=== PATIENT | male | born 1995 | race Caucasian/White ===

== ENCOUNTER 2018-02-22 20:50 | Emergency (ER) | payer OTHER ==
[2018-02-22] MEDS ORDERED: MOTRIN 600 MG PO STA (21:22)
[2018-02-22] MEDS ORDERED: Sodium Chloride 0.9% 1000 ML 1,000 ML IV STA (21:22)
[2018-02-22] MEDS ORDERED: Zofran 4 MG/2 ML VIAL IV STA (21:22)
[2018-02-22] MEDS ORDERED: Sodium Chloride 0.9% 1000 ML 1,000 ML ONE (21:37)
[2018-02-22] MEDS ORDERED: MOTRIN 600 MG ONE (21:37)
[2018-02-22] MEDS ORDERED: Zofran 4 MG/2 ML VIAL ONE (21:37)
[2018-02-22 21:52] LABS: BASOPHIL % 0.1 % (0.0-0.4); Basophil (Absolute #) 0.01 (0-0.4); Eosinophil % 0.1 % (0.00-5.0); Eosinophil (Absolute #) 0.01 (0-0.5); Granulocyte Absolute (ANC) 6.56 (1.4-6.9); Hematocrit 48.4 % (42-50); Hemoglobin 16.6 gm/dl (12.5-18.0); Lymphocyte (Absolute #) 0.41 (1.0-4.6); Lymphocytes % 5.6 % (24.0-44.0); Mean Cell Volume 87.7 fl (78-100); Mean Corpuscular Hemoglobin 30.1 pg (26-32); Mean Corpuscular Hgb Concent. 34.3 g/dl (32-36); Mean Platelet Volume 10.1 fl (6-9.5); Monocyte (Absolute #) 0.31 (0.0-1.3); Monocytes % 4.2 % (0.0-12.0); Platelet Count 172 K/mm3 (150-450); Red Blood Count 5.52 M/mm3 (4.1-5.6); White Blood Count 7.3 K/mm3 (4.0-10.5)
--- NOTE | 2018-02-22 21:52 | ERPHSYRPT ---
- History of Present Illness Time Seen by Provider: 02/22/18 21:35 Source: patient, family Exam Limitations: no limitations Patient Subjective Stated Complaint: Fever Triage Nursing Assessment: Patient ambulated into ED and transferred self to bed. Patient A+O X 3. Patient complains of being cold. Patient's temp currently 100.5. Patient hasn't checked temp at home. Patient also states it mobley when he urinates 12/22. Patient was seen by his family doctor today for possible kidney stones and was given a prescription for Cipro and Tamsulosin. Patient's skin flushed. Patient also states he has a slight headache. Physician History: 22 y/o white male presents with shaking fevers. pt seen by pcp today and given rx for cipro and tamiflu. pt took one dose of each medication today. pt having flu like sx including vomiting that began yesterday, muscle aches today, painful urination today, and fever today. pcp did not swab for flu Timing/Duration: yesterday (vomiting) Fever Severity: moderate Fever Therapy [employer]: none Associated Symptoms: headache, muscle aches, nausea/vomiting, weakness Allergies/Adverse Reactions: acetaminophen [From NyQuil] Allergy (Verified 02/22/18 21:13) bee venom protein (honey bee) Allergy (Verified 02/22/18 21:13) dextromethorphan [From NyQuil] Allergy (Verified 02/22/18 21:13) doxylamine [From NyQuil] Allergy (Verified 02/22/18 21:13) pseudoephedrine [From NyQuil] Allergy (Verified 02/22/18 21:13) Hx Tetanus, Diphtheria Vaccination/Date Given: No Hx Influenza Vaccination/Date Given: No Hx Pneumococcal Vaccination/Date Given: No Immunizations Up to Date: Yes - Review of Systems Constitutional: Fever, Weakness Eyes: No Symptoms Ears, Nose, & Throat: No Symptoms, No Ear Pain, No Nose Congestion Respiratory: No Symptoms, No Cough, No Dyspnea, No Stridor, No Wheezing Cardiac: No Symptoms, No Chest Pain, No Edema, No Palpitations, No Syncope Abdominal/Gastrointestinal: Nausea, Vomiting, No Abdominal Pain, No Diarrhea Genitourinary Symptoms: No Dysuria, No Frequency, No Hematuria Musculoskeletal: No Symptoms Skin: No Symptoms Neurological: No Symptoms Psychological: No Symptoms Endocrine: No Symptoms Hematologic/Lymphatic: No Symptoms Immunological/Allergic: No Symptoms All Other Systems: Reviewed and Negative - Past Medical History Pertinent Past Medical History: No Neurological History: No Pertinent History ENT History: No Pertinent History Cardiac History: No Pertinent History Respiratory History: No Pertinent History Endocrine Medical History: No Pertinent History Musculoskeletal History: No Pertinent History GI Medical History: No Pertinent History History: No Pertinent History Psycho-Social History: No Pertinent History Male Reproductive Disorders: No Pertinent History - Past Surgical History Past Surgical History: Yes Neuro Surgical History: No Pertinent History Cardiac: No Pertinent History Respiratory: No Pertinent History Gastrointestinal: No Pertinent History Genitourinary: No Pertinent History Musculoskeletal: Orthopedic Surgery Male Surgical History: No Pertinent History Other Surgical History: Rotator cuff surgery 2012 - Social History Smoking Status: Never smoker Exposure to second hand smoke: No Drug Use: none Patient Lives Alone: No - Nursing Vital Signs Nursing Vital Signs: Initial Vital Signs Temperature 100.5 F 02/22/18 21:05 Pulse Rate 124 H 02/22/18 21:05 Respiratory Rate 18 02/22/18 21:05 Blood Pressure 138/93 02/22/18 21:05 O2 Sat by Pulse Oximetry 98 02/22/18 21:05 Pain Scale Pain Intensity 7 - Physical Exam General Appearance: mild distress, alert, anxiety Eye Exam: PERRL/EOMI, eyes nml inspection ENT Exam: normal ENT inspection Neck Exam: normal inspection, non-tender, supple, full range of motion Respiratory Exam: normal breath sounds, chest non-tender, lungs clear, no respiratory distress, No no accessory muscle use, No accessory muscle use, No rhonchi, No stridor, No wheezing Cardiovascular/Chest Exam: normal heart sounds, regular rate/rhythm, normal peripheral pulses Gastrointestinal/Abdominal Exam: soft, non tender, no distention, no mass, no guarding, no ecchymosis, no organomegaly, no pulsatile mass, normal bowel sounds , No guarding, No rebound, No tenderness Rectal Exam: not done Extremity Exam: non-tender, normal range of motion, normal inspection Neurologic Exam: alert, oriented x 3, cooperative, 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 Skin Exam: normal color, warm, dry Lymphatic: No adenopathy SpO2 Interpretation: normal SpO2: 98 Oxygen Delivery: Room Air - Course Nursing assessment & vital signs reviewed: Yes Ordered Tests: Active Orders 24 hr Category Date Time Status Clean Catch Urine Specimen STAT Care 02/22/18 21:22 Active IV Insertion STAT Care 02/22/18 21:22 Active CHEST 1 VIEW (PORTABLE) Stat Exams 02/22/18 21:23 Taken BLOOD CULTURE Stat Lab 02/22/18 21:45 Received CBC W DIFF Stat Lab 02/22/18 21:30 Completed CMP Stat Lab 02/22/18 21:30 Completed CULTURE,URINE Stat Lab 02/22/18 21:33 Received Lactic Acid Stat Lab 02/22/18 21:52 Results [place] Screen Stat Lab 02/22/18 22:00 Completed UA W/RFX UR CULTURE Stat Lab 02/22/18 21:33 Completed Medication Summary Generic Name Dose Route Start Last Admin Trade Name Freq PRN Reason Stop Dose Admin Ceftriaxone Sodium/Dextrose 1 g in 50 mls @ 100 mls/hr 02/22/18 22:53 Rocephin 1 Gm-D5w 50 Ml Bag IV 02/22/18 23:22 STAT STA Discontinued Medications Generic Name Dose Route Start Last Admin Trade Name Freq PRN Reason Stop Dose Admin Sodium Chloride 1,000 mls @ 999 mls/hr 02/22/18 21:22 02/22/18 21:41 Sodium Chloride 0.9% 1000 Ml IV 02/22/18 22:22 999 mls/hr .Q1H1M STA Administration Sodium Chloride Confirm 02/22/18 21:37 Sodium Chloride 0.9% 1000 Ml Administered 02/22/18 21:38 Dose 1,000 mls @ ud .ROUTE .STK-MED ONE Ceftriaxone Sodium/Dextrose Confirm 02/22/18 23:07 Rocephin 1 Gm-D5w 50 Ml Bag Administered 02/22/18 23:08 Dose 1 g in 50 mls @ ud IV .STK-MED ONE Ibuprofen 600 mg 02/22/18 21:22 02/22/18 21:40 Motrin 600 Mg PO 02/22/18 21:23 600 mg STAT STA Administration Ibuprofen Confirm 02/22/18 21:37 Motrin 600 Mg Administered 02/22/18 21:38 Dose 600 mg .ROUTE .STK-MED ONE Ondansetron HCl 4 mg 02/22/18 21:22 02/22/18 21:42 Zofran 4 Mg/2 Ml Vial IV 02/22/18 21:23 4 mg STAT STA Administration Ondansetron HCl Confirm 02/22/18 21:37 Zofran 4 Mg/2 Ml Vial Administered 02/22/18 21:38 Dose 4 mg .ROUTE .STK-MED ONE Lab/Rad Data: Laboratory Result Diagrams 02/22/18 21:30 02/22/18 21:30 Laboratory Results 02/22/18 02/22/18 02/22/18 Range/Units 22:00 21:52 21:33 WBC (4.0-10.5) K/mm3 RBC (4.1-5.6) M/mm3 Hgb (12.5-18.0) gm/dl Hct (42-50) % MCV (78-100) fl MCH (26-32) pg MCHC (32-36) g/dl RDW (11.5-14.0) % Plt Count (150-450) K/mm3 MPV (6-9.5) fl Gran % (36.0-66.0) % Eos # (Auto) (0-0.5) Absolute Lymphs (auto) (1.0-4.6) Absolute Monos (auto) (0.0-1.3) Lymphocytes % (24.0-44.0) % Monocytes % (0.0-12.0) % Eosinophils % (0.00-5.0) % Basophils % (0.0-0.4) % Absolute Granulocytes (1.4-6.9) Basophils # (0-0.4) Sodium (137-145) mmol/L Potassium (3.5-5.1) mmol/L Chloride (98-107) mmol/L Carbon Dioxide (22-30) mmol/L Anion Gap (5-15) MEQ/L BUN (9-20) mg/dL Creatinine (0.66-1.25) mg/dL Estimated GFR ML/MIN Glucose (74-106) mg/dL Lactic Acid 2.3 H (0.4-2.0) Calcium (8.4-10.2) mg/dL Total Bilirubin (0.2-1.3) mg/dL AST (17-59) U/L ALT (0-50) U/L Alkaline Phosphatase (38-126) U/L Serum Total Protein (6.3-8.2) g/dL Albumin (3.5-5.0) g/dL Urine Color YELLOW (YELLOW) Urine Appearance SLIGHTLY CLOUDY (CLEAR) Urine pH 6.0 (5-6) Ur Specific [place] 1.021 (1.005-1.025) Urine Protein NEGATIVE (Negative) Urine Ketones NEGATIVE (NEGATIVE) Urine Blood SMALL (0-5) Mike/ul Urine Nitrite NEGATIVE (NEGATIVE) Urine Bilirubin NEGATIVE (NEGATIVE) Urine Urobilinogen NEGATIVE (0-1) mg/dL Ur Leukocyte Esterase TRACE (NEGATIVE) Urine WBC (Auto) 16-25 (0-5) /HPF Urine RBC (Auto) 11-15 (0-2) /HPF U Epithel Cells (Auto) NONE (FEW) /HPF Urine Bacteria (Auto) FEW (NEGATIVE) /HPF Urine Mucus (Auto) SLIGHT (NEGATIVE) /HPF Urine Culture Reflexed YES (NO) Urine Glucose NEGATIVE (NEGATIVE) mg/dL Monoscreen NEGATIVE (Negative) Influenza Type A Ag (NEGATIVE) Influenza Type B Ag (NEGATIVE) RSV (PCR) (Negative) Group A Strep Antibody (NEGATIVE) 02/22/18 02/22/18 02/22/18 Range/Units 21:30 21:30 21:30 WBC 7.3 (4.0-10.5) K/mm3 RBC 5.52 (4.1-5.6) M/mm3 Hgb 16.6 (12.5-18.0) gm/dl Hct 48.4 (42-50) % MCV 87.7 (78-100) fl MCH 30.1 (26-32) pg MCHC 34.3 (32-36) g/dl RDW 12.0 (11.5-14.0) % Plt Count 172 (150-450) K/mm3 MPV 10.1 H (6-9.5) fl Gran % 90.0 H (36.0-66.0) % Eos # (Auto) 0.01 (0-0.5) Absolute Lymphs (auto) 0.41 L (1.0-4.6) Absolute Monos (auto) 0.31 (0.0-1.3) Lymphocytes % 5.6 L (24.0-44.0) % Monocytes % 4.2 (0.0-12.0) % Eosinophils % 0.1 (0.00-5.0) % Basophils % 0.1 (0.0-0.4) % Absolute Granulocytes 6.56 (1.4-6.9) Basophils # 0.01 (0-0.4) Sodium 140 (137-145) mmol/L Potassium 3.9 (3.5-5.1) mmol/L Chloride 101 (98-107) mmol/L Carbon Dioxide 25 (22-30) mmol/L Anion Gap 17.5 H (5-15) MEQ/L BUN 12 (9-20) mg/dL Creatinine 1.05 (0.66-1.25) mg/dL Estimated GFR > 60.0 ML/MIN Glucose 112 H (74-106) mg/dL Lactic Acid (0.4-2.0) Calcium 9.8 (8.4-10.2) mg/dL Total Bilirubin 1.00 (0.2-1.3) mg/dL AST 40 (17-59) U/L ALT 51 H (0-50) U/L Alkaline Phosphatase 102 (38-126) U/L Serum Total Protein 9.3 H (6.3-8.2) g/dL Albumin 5.4 H (3.5-5.0) g/dL Urine Color (YELLOW) Urine Appearance (CLEAR) Urine pH (5-6) Ur Specific [place] (1.005-1.025) Urine Protein (Negative) Urine Ketones (NEGATIVE) Urine Blood (0-5) Mike/ul Urine Nitrite (NEGATIVE) Urine Bilirubin (NEGATIVE) Urine Urobilinogen (0-1) mg/dL Ur Leukocyte Esterase (NEGATIVE) Urine WBC (Auto) (0-5) /HPF Urine RBC (Auto) (0-2) /HPF U Epithel Cells (Auto) (FEW) /HPF Urine Bacteria (Auto) (NEGATIVE) /HPF Urine Mucus (Auto) (NEGATIVE) /HPF Urine Culture Reflexed (NO) Urine Glucose (NEGATIVE) mg/dL Monoscreen (Negative) Influenza Type A Ag NEGATIVE (NEGATIVE) Influenza Type B Ag NEGATIVE (NEGATIVE) RSV (PCR) NEGATIVE (Negative) Group A Strep Antibody NEGATIVE (NEGATIVE) - Progress Progress: improved, re-examined Progress Note: 02/22/18 22:51 cxr- no acute process. 02/22/18 23:16 pt clinically doing much better. Counseled pt/family regarding: lab results, diagnosis, need for follow-up, rad results - Departure Time of Disposition: 23:17 Departure Disposition: Home Clinical Impression: Fever, UTI (urinary tract infection) Condition: Stable Critical Care Time: No Referrals: RUSSEL DIAL Jr., MD [Primary Care Provider] - Additional Instructions: drink plenty of fluids. ibuprofen for fever. take cipro as prescribed. hold tamiflu. follow up with primary doctor for further management
[2018-02-22 21:55] LABS: Lactic Acid 2.3 (0.4-2.0)
[2018-02-22 22:15] LABS: ALBUMIN 5.4 g/dL (3.5-5.0); ALKALINE PHOSPHATASE 102 U/L (38-126); ANION GAP 17.5 MEQ/L (5-15); BLOOD UREA NITROGEN 12 mg/dL (9-20); CHLORIDE 101 mmol/L (98-107); Calcium 9.8 mg/dL (8.4-10.2); Carbon Dioxide 25 mmol/L (22-30); Creatinine 1 1.05 mg/dL (0.66-1.25); Glucose 112 mg/dL (74-106); Potassium 3.9 mmol/L (3.5-5.1); SGOT/AST 40 U/L (17-59); SGPT/ALT 51 U/L (0-50); SODIUM 140 mmol/L (137-145); Total Protein 9.3 g/dL (6.3-8.2)
[2018-02-22 22:33] LABS: Appearance SLIGHTLY CLOUDY (CLEAR); Bilirubin NEGATIVE (NEGATIVE); Blood SMALL Ery/ul (0-5); Glucose NEGATIVE (NEGATIVE); Ketones NEGATIVE (NEGATIVE); Leukocyte Esterase TRACE (NEGATIVE); Nitrite NEGATIVE (NEGATIVE); Protein,Urine Dip NEGATIVE (Negative); Specific Gravity 1.021 (1.005-1.025); Urobilinogen NEGATIVE mg/dL (0-1)
[2018-02-22 22:39] LABS: INFLUENZA A NEGATIVE (NEGATIVE); INFLUENZA B NEGATIVE (NEGATIVE); RESPIRATORY SYNCTIAL VIRUS NEGATIVE (Negative)
[2018-02-22] MEDS ORDERED: ROCEPHIN 1 Gm-D5w 50 ml Bag** 1 G/50 ML IVPB IV STA (22:53)
[2018-02-22] MEDS ORDERED: ROCEPHIN 1 Gm-D5w 50 ml Bag** 1 G/50 ML IVPB IV ONE (23:07)
[2018-02-22 23:20] VITALS: BP 99/57
[2018-02-22 23:53] VITALS: PULSE 100; O2SAT 95
[2018-02-23 04:57] LABS: Slide Review 1 YES
--- NOTE | 2018-02-23 09:10 | XRAY ---
Indication: Fever. Comparison: None Portable chest demonstrates normal heart, lungs, and bony thorax. Comment: Preliminary interpretation was made by [facility]. No discrepancy.
== END 2018-02-22 23:58 | disposition home or self-care (01) ==
LOC: ED 20:50
DX: N39.0 Urinary tract infection, site not specified (principal); R11.2 Nausea with vomiting, unspecified; R53.1 Weakness; R51 Headache; M79.10 Myalgia, unspecified site
CPT/HCPCS: 36000; 36415; 71045; 80053; 81001; 83605; 85025; 86308; 87040; 87086; 87631; 87651; 96374; 99284; J0696; J2405; A9270-GY